=== PATIENT | female | born 1995 | race Two or more races ===

== ENCOUNTER 2017-06-10 14:19 | Emergency (ER) | payer OTHER, BC ==
[2017-06-10 14:31] VITALS: BMI 33.9
--- NOTE | 2017-06-10 14:33 | PDOC ---
Rapid Medical Evaluation Medical Evaluation: Allergies Allergy/AdvReac Type Severity Reaction Status Date / Time No Known Allergies Allergy Verified 06/10/17 14:26 06/10/17 14:32 I have performed a brief in-person evaluation of this patient. The patient presents with a chief complaint of: vag bleeding ~4 wks , only spotting, some cramping Pertinent physical exam findings: well appearing I have ordered the following: labs The patient will proceed to the ED for further evaluation. Discharge Disposition - Diagnosis Vaginal bleeding in - Referrals Referrals: Maynor Tang MD [Primary Care Provider] - - Patient Instructions - Post Discharge Activity
[2017-06-10 14:55] LABS: BASO % 0.9 % (0-2.0); EOS % 1.3 % (0-4.5); HEMATOCRIT 38.8 % (32.4-45.2); HEMOGLOBIN 12.5 GM/dL (10.7-15.3); LYMPH % 30.2 % (8-40); MCH 28.5 pg (25.7-33.7); MCHC 32.2 g/dl (32.0-36.0); MEAN CELL VOLUME 88.7 fl (80-96); MEAN PLT VOLUME 11.7 fl (7.5-11.1); MONO % 7.4 % (3.8-10.2); NEUT % 60.2 % (42.8-82.8); RBC 4.38 M/mm3 (3.60-5.2); RDW 13.8 % (11.6-15.6); WHITE BLOOD COUNT 7.2 K/mm3 (4.0-10.0)
[2017-06-10 15:21] LABS: ALBUMIN 3.7 g/dl (3.4-5.0); ANION GAP 6 (8-16); BLOOD UREA NITROGEN 9 mg/dL (7-18); CALCIUM 8.3 mg/dL (8.5-10.1); CHLORIDE 107 mmol/L (98-107); CO2 26 mmol/L (21-32); CREATININE 0.6 mg/dL (0.55-1.02); GLUCOSE,RANDOM 89 mg/dL (74-106); POTASSIUM 3.6 mmol/L (3.5-5.1); SGOT/AST 10 U/L (15-37); SGPT/ALT 20 U/L (12-78); SODIUM 139 mmol/L (136-145)
[2017-06-10 15:42] LABS: ALK PHOS 71 U/L (45-117); BILIRUBIN,TOTAL 0.6 mg/dL (0.2-1.0); TOT PROT 7.2 g/dl (6.4-8.2)
[2017-06-10 15:54] LABS: PLATELET COUNT 113 K/MM3 (134-434)
--- NOTE | 2017-06-10 15:58 | PDOC ---
History of Present Illness - General Chief Complaint: Vaginal Bleeding Stated Complaint: BLEEDING Time Seen by Provider: 06/10/17 14:34 History Source: Patient - History of Present Illness Timing/Duration: reports: other (today) Quality: reports: moderate Past History - Past Medical History Allergies/Adverse Reactions: Allergies Allergy/AdvReac Type Severity Reaction Status Date / Time No Known Allergies Allergy Verified 06/10/17 14:26 Home Medications: Ambulatory Orders No Home Medications 0 dose .ROUTE UTDICT 08/13/12 Tramadol HCl 50 mg PO BID PRN #20 tablet 08/13/12 Asthma: No Cancer: No Cardiac Disorders: No COPD: No Diabetes: No HTN: No Liver Disease: No Seizures: No Thyroid Disease: No - Immunization History Td Vaccination: Yes Immunization Up to Date: Yes - Suicide/Smoking/Psychosocial Hx Smoking Status: No Smoking History: Never smoked Years of Tobacco Use: 0 Have you smoked in the past 12 months: No Number of Cigarettes Smoked Daily: 0 Cigars Per Day: 0 Information on smoking cessation initiated: No Hx Alcohol Use: No Drug/Substance Use Hx: No Substance Use Type: None Hx Substance Use Treatment: No Review of Systems - Review of Systems Constitutional: No: Fever ABD/GI: Yes: Abdominal cramping. No: Nausea, Vomiting : No: Dysuria *Physical Exam - Vital Signs Last Vital Signs Temp Pulse Resp BP Pulse Ox 84 20 120/63 100 06/10/17 14:27 06/10/17 14:27 06/10/17 14:27 06/10/17 14:27 - Physical Exam General Appearance: Yes: Appropriately Dressed. No: Apparent Distress HEENT: positive: Normal Voice Neck: positive: Supple Respiratory/Chest: negative: Respiratory Distress Female Pelvic Exam: positive: cervical os closed, normal adnexa, vaginal bleeding (minimal bleed). negative: CMT, adnexal tenderness Gastrointestinal/Abdominal: positive: Soft. negative: Tender Musculoskeletal: negative: CVA Tenderness Integumentary: positive: Dry, Warm Neurologic: positive: Fully Oriented, Alert, Normal Mood/Affect ED Treatment Course - LABORATORY CBC & Chemistry Diagram: 06/10/17 02:40 06/10/17 02:40 - ADDITIONAL ORDERS Additional order review: Laboratory Results 06/10/17 06/10/17 14:40 02:40 Sodium 139 Potassium 3.6 Chloride 107 Carbon Dioxide 26 Anion Gap 6 L BUN 9 Creatinine 0.6 Creat Clearance w eGFR > 60 Random Glucose 89 Calcium 8.3 L Total Bilirubin 0.6 D AST 10 L ALT 20 Alkaline Phosphatase 71 Total Protein 7.2 Albumin 3.7 Beta HCG, Quant 1056.4 Blood Type B POSITIVE Antibody Screen Negative 06/10/17 02:40 RBC 4.38 MCV 88.7 MCHC 32.2 RDW 13.8 MPV 11.7 H D Neutrophils % 60.2 Lymphocytes % 30.2 Monocytes % 7.4 Eosinophils % 1.3 Basophils % 0.9 Medical Decision Making - Medical Decision Making 06/10/17 15:55 22 yo F, (s/p 1 spon AB), oxygen 4 weeks by dates and here with vaginal bleeding, abdominal cramping that started today. No dysuria, nausea, vomiting, fever or chills. Scheduled for first on June 19. See exam Vaginal bleeding in first trimester R/o ectopic vs spontaneous AB vs vaginal bleed in normal -beta -T&S -ua -US 06/10/17 17:48 Beta 1056 with IUP (ges sac + yolk sac) seen on US, corresponding to ~ 4-5 weeks of gestation, no embryonic pole or cardiac activity. Rh+ and UA with no signs of infection. Patient stable for discharge. Has upcoming OB follow-up. Reasons to return discussed with patient *DC/Admit/Observation/Transfer Diagnosis at time of Disposition: Threatened - Discharge Dispostion Disposition: HOME Condition at time of disposition: Stable - Referrals Referrals: Maynor Tang MD [Staff Physician] - - Patient Instructions Printed Discharge Instructions: DI for Threatened Additional Instructions: Your beta was 1056 today. Ultrasound showed most likely an early . But given your vaginal bleeding, there is a chance that you could miscarry especially if bleeding persists or gets worse. If this happens, return to the ED, otherwise follow-up with her OB at already scheduled appointment - Post Discharge Activity
[2017-06-10 17:25] LABS: URINE APPEARANCE CLEAR; URINE BILIRUBIN NEGATIVE (NEGATIVE); URINE BLOOD 2+ (NEGATIVE); URINE COLOR YELLOW; URINE GLUCOSE (UA) NEGATIVE (NEGATIVE); URINE KETONE TRACE (NEGATIVE); URINE LEUK ESTERASE NEGATIVE (NEGATIVE); URINE NITRITE NEGATIVE (NEGATIVE); URINE PROTEIN NEGATIVE (NEGATIVE)
[2017-06-10 17:45] LABS: EPI CELLS RARE /HPF (FEW); URINE HYALINE CAST 1 /lpf; URINE MUCUS MANY
--- NOTE | 2017-06-10 17:58 | PDOC ---
*Physical Exam - Vital Signs Last Vital Signs Temp Pulse Resp BP Pulse Ox 84 20 120/63 100 06/10/17 14:27 06/10/17 14:27 06/10/17 14:27 06/10/17 14:27 ED Treatment Course - LABORATORY CBC & Chemistry Diagram: 06/10/17 02:40 06/10/17 02:40 - ADDITIONAL ORDERS Additional order review: Laboratory Results 06/10/17 06/10/17 06/10/17 16:48 14:40 02:40 Sodium 139 Potassium 3.6 Chloride 107 Carbon Dioxide 26 Anion Gap 6 L BUN 9 Creatinine 0.6 Creat Clearance w eGFR > 60 Random Glucose 89 Calcium 8.3 L Total Bilirubin 0.6 D AST 10 L ALT 20 Alkaline Phosphatase 71 Total Protein 7.2 Albumin 3.7 Beta HCG, Quant 1056.4 Urine Color Yellow Urine Appearance Clear Urine pH 5.0 Ur Specific [place] 1.031 Urine Protein Negative Urine Glucose (UA) Negative Urine Ketones Trace H Urine Blood 2+ H Urine Nitrite Negative Urine Bilirubin Negative Urine Urobilinogen 2.0 H Ur Leukocyte Esterase Negative Blood Type B POSITIVE Antibody Screen Negative 06/10/17 02:40 RBC 4.38 MCV 88.7 MCHC 32.2 RDW 13.8 MPV 11.7 H D Neutrophils % 60.2 Lymphocytes % 30.2 Monocytes % 7.4 Eosinophils % 1.3 Basophils % 0.9 *DC/Admit/Observation/Transfer Diagnosis at time of Disposition: Threatened - Discharge Dispostion Disposition: HOME Condition at time of disposition: Stable - Referrals Referrals: Maynor Tang MD [Staff Physician] - - Patient Instructions Printed Discharge Instructions: DI for Threatened Additional Instructions: Your beta was 1056 today. Ultrasound showed most likely an early . But given your vaginal bleeding, there is a chance that you could miscarry especially if bleeding persists or gets worse. Please stay home and rest for the next several days by mostly lying in bed and avoid sex If abdominal cramping and/or vaginal bleeding worsen, return to ED, otherwise follow-up with your OB at already scheduled appointment - Post Discharge Activity Forms/Work/School Notes: Back to Work
[2017-06-10 18:08] VITALS: BP 114/81; PULSE 81; TEMP 98.2
[2017-06-11 01:41] LABS: HCG,QUALITATIVE URINE POSITIVE
== END 2017-06-10 18:07 | disposition home or self-care (01) ==
LOC: JER 14:19
DX: O26.891 Other specified pregnancy related conditions, first trimester (principal); O20.0 Threatened abortion; Z3A.01 Less than 8 weeks gestation of pregnancy
CPT/HCPCS: 36415; 76817-TC; 80053; 81003; 81015; 84702; 84703; 85025; 86850; 86900; 86901; 99282-25

== ENCOUNTER 2017-06-11 23:47 | Emergency (ER) | payer OTHER, BC ==
[2017-06-12 01:07] VITALS: BP 124/67; PULSE 83; TEMP 98.1; BMI 32.3
--- NOTE | 2017-06-12 01:49 | PDOC ---
History of Present Illness - General Stated Complaint: VAGINAL BLEEDING/5 WKS Time Seen by Provider: 06/12/17 01:10 Exam Limitations: No Limitations - History of Present Illness Travel History: No Initial Comments: 06/12/17 01:59 22-year-old woman who presents to emergency department with vaginal bleeding tonight. Patient states that approximately 7 PM she started having severe vaginal bleeding requiring one pad per hour. She went to the bathroom will she was experiencing some cramping stated she "had to squeeze to pee" and noted a clot in the toilet. Patient was seen and evaluated on 06/10 for similar episode was told to follow-up with her county demonstrator unless she had started bleeding/cramping again. Past History - Past Medical History Allergies/Adverse Reactions: Allergies Allergy/AdvReac Type Severity Reaction Status Date / Time No Known Allergies Allergy Verified 06/10/17 14:26 Home Medications: Ambulatory Orders No Home Medications 0 dose .ROUTE UTDICT 08/13/12 Tramadol HCl 50 mg PO BID PRN #20 tablet 08/13/12 Anemia: No Asthma: No Cancer: No Cardiac Disorders: No CVA: No COPD: No DVT: No Dementia: No Diabetes: No Dialysis: No GI Disorders: No Disorders: No HTN: No Hypercholesterolemia: No Kidney Stones: No Liver Disease: No Psychiatric Problems: No Seizures: No Thyroid Disease: No Lung CA: No - Reproductive History Is Patient Now?: Yes (4-5 weeks) (#): 4 Para: 2 Spontaneous : 2 - Immunization History Td Vaccination: Yes Immunization Up to Date: Yes - Suicide/Smoking/Psychosocial Hx Smoking Status: No Smoking History: Never smoked Years of Tobacco Use: 0 Have you smoked in the past 12 months: No Number of Cigarettes Smoked Daily: 0 Cigars Per Day: 0 Information on smoking cessation initiated: No Hx Alcohol Use: No Drug/Substance Use Hx: No Substance Use Type: None Hx Substance Use Treatment: No Review of Systems - Review of Systems Able to Perform ROS?: Yes Is the patient limited Mexican proficient: No Constitutional: No: Symptoms Reported HEENTM: No: Symptoms Reported Respiratory: No: Symptoms reported Cardiac (ROS): No: Symptoms Reported ABD/GI: Yes: See HPI : No: Symptoms Reported Musculoskeletal: No: Symptoms Reported Integumentary: No: Symptoms Reported Neurological: No: Symptoms reported *Physical Exam - Vital Signs Last Vital Signs Temp Pulse Resp BP Pulse Ox 98.1 F 83 20 124/67 100 06/12/17 00:50 06/12/17 00:50 06/12/17 00:50 06/12/17 00:50 06/12/17 00:50 - Physical Exam General Appearance: Yes: Appropriately Dressed. No: Apparent Distress Neck: positive: Trachea midline, Supple Respiratory/Chest: positive: Lungs Clear, Normal Breath Sounds. negative: Respiratory Distress, Accessory Muscle Use Cardiovascular: positive: Regular Rhythm, Regular Rate. negative: Murmur Female Pelvic Exam: positive: normal external exam, cervical os closed, normal adnexa, vaginal bleeding, other (clots noted in vault). negative: CMT, discharge Gastrointestinal/Abdominal: positive: Normal Bowel Sounds, Soft. negative: Tender Musculoskeletal: positive: Normal Inspection. negative: CVA Tenderness Neurologic: positive: Alert, Normal Mood/Affect, Normal Response Medical Decision Making - Medical Decision Making 06/12/17 02:01 A/P: 22-year-old with first trimester vaginal bleeding soaking one pad per hour for the past 6 hours Seen and evaluated here 06/10 with documented IUP and beta 1000. CBC, repeat beta, BMP Reassess 06/12/17 02:47 Patient currently states she does not want to wait for repeat blood testing. Patient states she has an appointment with her county demonstrator in June 19 for scheduled D&C. Has been explained to the patient that her previous physician was Dr. castillo and with the bleeding she has reported she runs the risk of profound anemia competitions thereof. Patient is requesting to leave the hospital AGAINST MEDICAL ADVICE at this time. *DC/Admit/Observation/Transfer Diagnosis at time of Disposition: Threatened - Discharge Dispostion Disposition: AGAINST MEDICAL ADVICE Condition at time of disposition: Guarded Admit: No - Referrals Referrals: Maynor Tang MD [Staff Physician] - - Patient Instructions Additional Instructions: Avoid sexual intercourse at this time. You should lay down and rest as much as possible. Return to emergency department for worsening bleeding, shortness of breath, chest pain, lightheadedness, dizziness, severe abdominal pain or any other concerns. - Post Discharge Activity
== END 2017-06-12 02:55 | disposition left against medical advice (07) ==
LOC: JER 23:47
DX: O26.891 Other specified pregnancy related conditions, first trimester (principal); O20.0 Threatened abortion; Z3A.01 Less than 8 weeks gestation of pregnancy
CPT/HCPCS: 99282-25